=== PATIENT | female | born 1950 | race Caucasian/White ===

== ENCOUNTER → 2020-12-16 17:10 | Outpatient (CLI) | payer MEDICARE, SELFPAY | PROVIDERS: PCP Family Medicine; Visit Provider Physician Assistant | DX: N23 Unspecified renal colic (principal) | CPT/HCPCS: 87077; 87086; 87186 ==

== ENCOUNTER → 2021-07-24 11:37 | Outpatient (CLI) | payer MEDICARE, SELFPAY | PROVIDERS: PCP Family Medicine; Visit Provider Family Medicine | DX: R30.0 Dysuria (principal) | CPT/HCPCS: 87077; 87086; 87186 ==

== ENCOUNTER → 2022-01-06 09:59 | Outpatient (CLI) | payer MEDICARE, SELFPAY | PROVIDERS: PCP Family Medicine; Visit Provider Physician Assistant | DX: R30.0 Dysuria (principal); R39.15 Urgency of urination; Z91.89 Other specified personal risk factors, not elsewhere classified | CPT/HCPCS: 87077; 87086; 87186 ==

== ENCOUNTER → 2022-01-22 10:43 | Outpatient (CLI) | payer MEDICARE, SELFPAY ==
[2022-01-22 20:09] LABS: Appearance Urine UA CLEAR; Bilirubin Urine UA NEGATIVE (NEGATIVE); Color Urine UA YELLOW; Glucose Urine UA NEGATIVE (Negative); Ketones Urine UA NEGATIVE (NEGATIVE); Leukocyte Esterase Urine UA NEGATIVE (NEGATIVE); Nitrite Urine UA NEGATIVE (Negative); Occult Blood Urine UA TRACE-INTACT (Negative); Protein Urine UA NEGATIVE (Negative); Specific Gravity Urine UA 1.015 (1.000-1.035); Urobilinogen Urine UA 0.2 E.U./dL (0.2)
[2022-01-22 20:16] LABS: Bacteria Urine Occasional (0-1); Culture Indicated Urine Cult Not Indicated; Other Crystals Urine 1+ Amorphous; RBC Urine 0-1/HPF (0-5/HPF); Squamous Epithelial Cell Urine 0-1 /HPF (0-5/HPF); WBC Urine 0-1/HPF (0-5/HPF)
== END ==
PROVIDERS: PCP Family Medicine; Visit Provider Physician Assistant
DX: N30.00 Acute cystitis without hematuria (principal)
CPT/HCPCS: 81001

== ENCOUNTER → 2022-09-30 13:34 | Outpatient (CLI) | payer MEDICARE, SELFPAY ==
[2022-09-30 19:52] LABS: Add Manual Diff / Slide Review NO; Basophils Absolute Auto 0 /uL (0-100); Basophils Percent Auto 0.5 % (0-2); Eosinophils Absolute Auto 300 /uL (0-450); Eosinophils Percent Auto 3.3 % (2-4); Hematocrit 39.2 % (36-46); Hemoglobin 13.3 g/dL (12.0-16.0); Lymphocytes Absolute Auto 1000 /uL (1100-4500); Lymphocytes Percent Auto 10.2 % (25-40); Mean Corpuscular HGB Conc 33.8 % (30-36); Mean Corpuscular Volume 91.7 fL (80-100); Monocytes Absolute Auto 1400 /uL (0-900); Monocytes Percent Auto 14.8 % (3-14); Neutrophils Absolute Auto 6700 /uL (1500-7000); Neutrophils Percent Auto 71.2 % (50-75); Platelet Count 268 X10^3/uL (150-400); Red Blood Cell Count 4.27 X10^6/uL (4.0-5.2); White Blood Cell Count 9.4 X10^3/uL (4.5-11.0)
[2022-09-30 20:00] LABS: Alanine Aminotransferase 14 IU/L (<35); Albumin 3.8 g/dL (3.5-5.0); Albumin Globulin Ratio 1.3 (1.0-2.8); Alkaline Phosphatase 78 U/L (38-126); Aspartate Aminotransferase 19 IU/L (14-36); BUN Creatinine Ratio 19.4 (6-22); Bilirubin Total 0.6 mg/dL (0.2-1.3); Blood Urea Nitrogen 13 mg/dL (7-17); Calcium 8.7 mg/dL (8.4-10.2); Carbon Dioxide 23 mmol/L (22-32); Chloride 100 mmol/L (98-107); Estimated Glomerular Filt Rate > 60 mL/min (>60); Glucose 114 mg/dL (80-110); HEMOLYSIS < 15 (0-50); Potassium 4.3 mmol/L (3.4-5.1); Sodium 132 mmol/L (137-145); Total Protein 6.8 g/dL (6.3-8.2)
[2022-09-30 20:10] LABS: NT-proBNP (BNP-Adult 18+) 410 pg/mL (<125)
[2022-09-30 20:30] LABS: D Dimer 934 ng/ml (<500)
== END ==
PROVIDERS: PCP Physician Assistant; Visit Provider Physician Assistant
DX: R05.9 Cough, unspecified (principal); R06.02 Shortness of breath
CPT/HCPCS: 80053; 83880; 85025; 85379

== ENCOUNTER 2022-10-01 10:52 | Emergency (ER) | payer MEDICARE, OTHER, SELFPAY ==
[2022-10-01] VITALS (12 sets, daily range): BP systolic 160–190; BP diastolic 75–101; PULSE 78–93; RESP 20–40; TEMP 37; O2SAT 95–99; BMI 19.9
--- NOTE | 2022-10-01 11:20 | DI.CT.S_ITS ---
PROCEDURE: CT ANGIO CHEST PE PROTOCOL INDICATIONS: soa TECHNIQUE: After the administration of intravenous contrast, 2 mm thick sections acquired from the pulmonary apices to the posterior costophrenic angles. 3-dimensional maximum intensity projection (MIP) coronal and sagittal reformats were then acquired through the thorax. For radiation dose reduction, the following was used: automated exposure control, adjustment of mA and/or kV according to patient size. COMPARISON: None. FINDINGS: Image quality: Excellent. Pulmonary arteries: Pulmonary arteries are normal in size, and demonstrate no intraluminal filling defects to suggest central pulmonary embolism. Lungs and pleura: Prior right pneumonectomy. Bronchiectasis, mucous impaction and tree-in-bud nodules in the left lower lobe. Mild mosaic attenuation. Mediastinum: Heart size is normal, without pericardial effusion. No mediastinal or hilar adenopathy. Thoracic aorta is normal in caliber and enhancement. Esophagus is normal in caliber, without hiatal hernia. Bones and chest wall: No suspicious bony lesions. Ribs and thoracic spine appear intact throughout. Thyroid gland is hypoattenuating. No axillary or supraclavicular adenopathy. Abdomen: Visualized upper abdominal solid organs appear normal in the early arterial phase of enhancement. IMPRESSION: No pulmonary embolus. Left lower lobe bronchiectasis with mucous impaction and tree-in-bud nodules. Findings are suggestive of a chronic process such as aspiration or chronic infectious bronchitis/bronchiolitis. Mild mosaic attenuation of the lungs, suggestive of air trapping in the setting of small airways disease. Prior right pneumonectomy. Dictated by: Tyler Oliveros M.D. on 10/01/2022 at 12:16 Approved by: Tyler Oliveros M.D. on 10/01/2022 at 12:19
[2022-10-01] MEDS: SODIUM CHLORIDE 0.9% 500 ML 1000 ML IV (12:14)
--- NOTE | 2022-10-01 12:23 | ED.SOB ---
HPI - SOB/Dyspnea General Chief Complaint: Shortness of Breath/Dyspnea Stated Complaint: sent by [facility]/ SOB/has 1 lung/poss blood clots Time Seen by Provider: 10/01/22 11:20 Source: patient Mode of arrival: Ambulatory Limitations: no limitations History of Present Illness HPI Narrative: Patient brought in by from home for complaints of shortness of breath. Patient had appointment yesterday with primary care and D-dimer was elevated. Sent here for CT imaging. Patient just returned home from [place] this past Wednesday. They were driving. No prior history of pulmonary embolism. 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 Patient is not on supplemental oxygen at home. She does do occasional inhalers. Please see note below by primary care from yesterday. She sees a compensation administrator in [place]. Her time is divided between [place] and living here. She is back here for the summer. Denies any chest pain. She did have echocardiogram in [place] which was normal. Has had some night sweats. No weight gain. No peripheral edema. 72 yo, nonsmoker, new to me reports SOB with coughing that started around 09/02/22. She does have a compensation administrator in [place],? saw him @09/02/22, and he put her on 5 day prednisone @ 40mg (last dose 09/18/22), added another inhaler (she can't remember which) and sent her for an echocardiogram.? She was not prescribed antibiotics. Echo was normal. In the beginning she had congested cough which has now become a dry cough. 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 She did just travel here for four days in a car but her symptoms were present longer.? She had negative covid test earlier today. Denies fever, runny nose, throat pain. Denies history with clot. She has oxygen at home, SPO2 usually runs @95% and today has been at 91-92%. Related Data Home Medications Medication Instructions Recorded Confirmed fluticasone furoate 100 1 inh inhalation DAILY 12/16/20 09/30/22 mcg-vilanterol 25 mcg/dose inhalation powder (Breo Ellipta) levothyroxine 100 mcg capsule 100 mcg PO DAILY 09/30/22 09/30/22 Previous Rx's Medication Instructions Recorded albuterol sulfate 2.5 mg/3 mL 2.5 mg (3 mL) inhalation Q4-6H PRN 10/01/22 (0.083 %) solution for nebulization shortness of breath or wheezing #90 mL Allergies Allergy/AdvReac Type Severity Reaction Status Date / Time ampicillin [AMPICILLIN] Allergy Mild Rash Verified 10/01/22 10:54 clindamycin [CLINDAMYCIN] Allergy Mild Rash Verified 10/01/22 10:54 Sulfa (Sulfonamide AdvReac Mild Nausea Verified 10/01/22 11:23 Antibiotics) [SULFA (SULFONAMIDE ANTIBIOTICS)] Review of Systems Review of Systems Narrative: GENERAL: negative chills, fatigue, malaise, fever, sweats. HEENT: negative sinus pain, ear pain, sore throat RESPIRATORY: Positive dyspnea, positive cough CARDIOVASCULAR: negative chest pain, palpitations GASTROINTESTINAL: negative nausea, vomiting, abdominal pain : negative dysuria, frequency, hematuria MUSCULOSKELETAL: negative muscle or bony pain SKIN: negative rash, skin lesions NEUROLOGIC: negative weakness, numbness ROS Unobtainable: All systems reviewed & are unremarkable except as noted in HPI and below Patient History Social History Smoking Status: Never smoker Smoking Status: Never smoker alcohol intake frequency: holidays/special occasions only Substance Use Type: does not use Exam Narrative Exam Narrative: GENERAL: in no distress, not toxic not dyspneic HEAD: Normocephalic. EYES: Pupils equal round ENT: Mucous membranes moist. NECK: Trachea midline. CARDIOVASCULAR: Regular rate and rhythm without murmurs RESPIRATORY: Absent lung sounds on the right. Clear lung sounds on the left. Patient is speaking full sentences. No wheezing rhonchi or rales. GASTROINTESTINAL: Abdomen soft, non-tender EXTREMITIES: No gross deformities. No ankle edema BACK: No flank tenderness. NEURO: AOx4. SKIN: Warm and dry PSYCH: Not anxious, is cooperative Initial Vital Signs Initial Vital Signs: Vital Signs Temperature 98.6 F 10/01/22 10:54 Pulse Rate 93 H 10/01/22 10:54 Respiratory Rate 24 10/01/22 10:54 Blood Pressure 176/101 H 10/01/22 10:54 Pulse Oximetry 96 10/01/22 10:54 Oxygen Delivery Method Room Air 10/01/22 10:54 Course Orders Ordered: Discontinued Medications Albuterol (Albuterol 2.5 Mg/3 Ml Neb (Adult)) 2.5 mg INH NOW ONE Stop: 10/01/22 14:01 Last Admin: 10/01/22 14:04 Dose: 2.5 mg Documented By: PEPE Sodium Chloride (Normal Saline 0.9%) 500 mls @ 1,000 mls/hr IV BOLUS ONE Stop: 10/01/22 11:49 Last Infusion: 10/01/22 13:19 Dose: 0 mls/hr Documented By: Admin: 10/01/22 12:14 Dose: 1,000 mls/hr Documented By: RO Vital Signs Vital signs: Vital Signs - 8 hr 10/01/22 10:54 10/01/22 11:36 10/01/22 11:37 Temperature 98.6 F Pulse Rate 93 H 81 Respiratory Rate 24 28 H Blood Pressure 176/101 H 170/75 H Pulse Oximetry 96 Oxygen Delivery Method Room Air Oxygen Flow Rate Fraction of Inspired Oxygen 10/01/22 11:37 10/01/22 14:04 Temperature Pulse Rate 80 87 Respiratory Rate 35 H 24 Blood Pressure Pulse Oximetry 95 Oxygen Delivery Method Room Air Oxygen Flow Rate 0 Fraction of Inspired Oxygen 21 MDM - SOB/Dyspnea Lab Data 10/01/22 12:22 10/01/22 12:22 Labs: Lab Results 10/01/22 10/01/22 10/01/22 Range/Units 12:22 12:22 12:30 WBC 10.0 (4.5-11.0) X10^3/uL RBC 4.27 (4.0-5.2) X10^6/uL Hgb 13.0 (12.0-16.0) g/dL Hct 39.4 (36-46) % MCV 92.1 (80-100) fL MCH 30.5 (26-34) PG MCHC 33.1 (30-36) % RDW 13.6 (11.6-14.8) % Plt Count 291 (150-400) X10^3/uL Neut % (Auto) 73.4 (50-75) % Lymph % (Auto) 12.0 L (25-40) % Dougherty % (Auto) 13.7 (3-14) % Eos % (Auto) 0.8 L (2-4) % Baso % (Auto) 0.1 (0-2) % Neut # (Auto) 7300 H (3530-3874) /uL Lymph # (Auto) 1200 (0415-7888) /uL Dougherty # (Auto) 1400 H (0-900) /uL Eos # (Auto) 100 (0-450) /uL Baso # (Auto) 0 (0-100) /uL Sodium 132 L (137-145) mmol/L Potassium 3.8 (3.4-5.1) mmol/L Chloride 100 (98-107) mmol/L Carbon Dioxide 26 (22-32) mmol/L BUN 13 (7-17) mg/dL Creatinine 0.53 (0.52-1.04) mg/dL Estimated GFR > 60 (>60) mL/min BUN/Creatinine Ratio 24.5 H (6-22) Glucose 100 (80-110) mg/dL Calcium 8.8 (8.4-10.2) mg/dL Total Bilirubin 0.5 (0.2-1.3) mg/dL AST 20 (14-36) IU/L ALT 15 (<35) IU/L Alkaline Phosphatase 75 (38-126) U/L Total Creatine Kinase 63 (30-135) U/L CK-MB (CK-2) TNP CK-MB (CK-2) Rel Index TNP Troponin I < 0.012 (0.01-0.034) ng/mL Total Protein 7.5 (6.3-8.2) g/dL Albumin 4.1 (3.5-5.0) g/dL Globulin 3.4 (1.7-4.1) g/dL Albumin/Globulin Ratio 1.2 (1.0-2.8) Chlamy pneumoniae PCR Not detected (Not Detect) Adenovirus (PCR) Not detected (Not Detect) B. pertussis DNA (PCR) Not detected (Not Detecte) B.parapertussis DNA PCR Not detected (Not Detecte) Coronavirus OC43 (PCR) Not detected (Not Detect) Coronavirus HKU1 (PCR) Not detected (Not Detect) Coronavirus 229E (PCR) Not detected (Not Detect) SARS-CoV-2 (PCR) Not detected (Not Detecte) Coronavirus NL63 (PCR) Not detected (Not Detect) Human Metapneumovir PCR Not detected (Not Detect) Influenza Type A (PCR) Not detected (Not Detect) Influenza Type B (PCR) Not detected (Not Detect) M. pneumoniae (PCR) Not detected (Not Detect) Parainfluenza 1 (PCR) Not detected (Not Detect) Parainfluenza 2 (PCR) Not detected (Not Detect) Parainfluenza 3 (PCR) Not detected (Not Detect) Parainfluenza 4 (PCR) Not detected (Not Detect) RSV (PCR) Not detected (Not Detect) Entero/Rhino (PCR) Not detected (Not Detect) Imaging Data CT scan - chest: Radiologist's Impression: IMPRESSION:? No pulmonary embolus. ? Left lower lobe bronchiectasis with mucous impaction and tree-in-bud nodules.? Findings are suggestive of a chronic process such as aspiration or chronic infectious bronchitis/bronchiolitis. ? Mild mosaic attenuation of the lungs, suggestive of air trapping in the setting of small airways disease. ? Prior right pneumonectomy. MDM Narrative Medical decision making narrative: Patient brought in by from home for complaints of shortness of breath. Patient had appointment yesterday with primary care and D-dimer was elevated. Sent here for CT imaging. Patient just returned home from [place] this past Wednesday. They were driving. No prior history of pulmonary embolism. 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 Patient is not on supplemental oxygen at home. She does do occasional inhalers. Please see note below by primary care from yesterday. She sees a compensation administrator in [place]. Her time is divided between [place] and living here. She is back here for the summer. Denies any chest pain. She did have echocardiogram in [place] which was normal. Has had some night sweats. No weight gain. No peripheral edema. After history and exam CBC CMP troponin EKG CT chest viral swab [facility] CC: Dyspnea Complicating co-morbidities: Mycobacterium/bronchial centric granulomatosis Data collected from: Patient and . Medical records reviewed: Office visit yesterday September 30, 2022 with primary care Differential considered: Includes but not limited to pneumonia pulmonary embolism fungal infection viral infection Exam documented above, pertinent findings include: Absent right lung sounds Lab Test results independently reviewed as above. Pertinent findings: WBC 10.0 hemoglobin 13 platelets 291 sodium 132 BUN 13 creatinine 0.53 GFR greater than 60 Independently reviewed EKG as above trigeminy pattern. Sinus rhythm. Rate 82. No ST elevation or depression Imaging studies independently reviewed: CT chest. No pulmonary embolus. Left lower lobe bronchiectasis with mucous impaction and tree-in-bud nodules. Findings are suggestive of chronic process such as aspiration or chronic infectious bronchitis bronchiolitis. Mild mosaic attenuation of the lungs suggestive of air trapping in the setting of small airway disease Consultations: 1:30 p.m.. Spoke with [facility] cardiology Dr Kamara, trigeminy likely due to chronic lung disease. No intervention indicated from cardiac standpoint. 2:30 p.m.. Spoke with [facility], pulmonary service, Dr. Shoemaker, he is not on-call for us however he was kind enough to give phone number for patient to follow up, may need referral. Patient would follow up at the [place] office. [facility] Treatments: Albuterol nebulizer. Re-evaluations: 2:45 p.m.. Patient feeling much better after albuterol nebulized treatment. She feels like she can take a deep breath and not as short of breath. I reviewed results with patient and . Also my discussion with Pulmonary as [facility], they are not on-call for us but they were kind to give phone number to call the office and may need referral from primary care to see them. Phone number is [phone]. Return precautions reviewed with them. I will refill her albuterol. She had not been using it. Discussion: Appropriate for discharge home. Symptoms ongoing for 4 weeks. Otherwise laboratory studies imaging are reassuring. Patient felt much better after albuterol treatment. They are aware that CT imaging does not rule out infectious process but at this time symptoms ongoing for weeks. Approved for outpatient workup/bronchoscopy. Return precautions reviewed. Patient feeling much better. They desire discharge home Diagnosis: Dyspnea Discharge Plan Departure Patient Disposition: Home Clinical Impression: SOB (shortness of breath) Instructions: DI for Shortness of Breath Activity Restrictions/Additional Instructions: Please call provided pulmonary services today or tomorrow to make appointment for a new compensation administrator. you may need referral from your family doctor. They do have offices at [place] as well as [place]. Prescription for albuterol nebulizer cartridges has been sent to your pharmacy to [facility]. May continue 1 treatment every 4 hours as needed for shortness of breath. At this time no antibiotics are indicated.. Return if worse if any questions or concerns or any trouble breathing Prescriptions: New albuterol sulfate 2.5 mg /3 mL (0.083 %) solution for nebulization 2.5 mg inhalation Q4-6H PRN (Reason: shortness of breath or wheezing) Qty: 90 0RF No Action Breo Ellipta 100-25 mcg/dose blister with device 1 inh inhalation DAILY levothyroxine 100 mcg capsule 100 mcg PO DAILY Referrals: Viki Acosta PA-C [Primary Care Provider] - Stand Alone Forms: Patient Portal/API
[2022-10-01 12:45] LABS: Add Manual Diff / Slide Review NO; Basophils Absolute Auto 0 /uL (0-100); Basophils Percent Auto 0.1 % (0-2); Eosinophils Absolute Auto 100 /uL (0-450); Eosinophils Percent Auto 0.8 % (2-4); Hematocrit 39.4 % (36-46); Lymphocytes Absolute Auto 1200 /uL (1100-4500); Mean Corpuscular HGB Conc 33.1 % (30-36); Mean Corpuscular Hemoglobin 30.5 PG (26-34); Mean Corpuscular Volume 92.1 fL (80-100); Monocytes Absolute Auto 1400 /uL (0-900); Monocytes Percent Auto 13.7 % (3-14); Neutrophils Absolute Auto 7300 /uL (1500-7000); Neutrophils Percent Auto 73.4 % (50-75); Platelet Count 291 X10^3/uL (150-400); Red Blood Cell Count 4.27 X10^6/uL (4.0-5.2); Red Cell Distribution Width 13.6 % (11.6-14.8)
[2022-10-01 12:50] LABS: Alanine Aminotransferase 15 IU/L (<35); Albumin 4.1 g/dL (3.5-5.0); Albumin Globulin Ratio 1.2 (1.0-2.8); Alkaline Phosphatase 75 U/L (38-126); Aspartate Aminotransferase 20 IU/L (14-36); BUN Creatinine Ratio 24.5 (6-22); Bilirubin Total 0.5 mg/dL (0.2-1.3); Blood Urea Nitrogen 13 mg/dL (7-17); Calcium 8.8 mg/dL (8.4-10.2); Carbon Dioxide 26 mmol/L (22-32); Chloride 100 mmol/L (98-107); Creatine Kinase 63 U/L (30-135); Estimated Glomerular Filt Rate > 60 mL/min (>60); Globulin 3.4 g/dL (1.7-4.1); Glucose 100 mg/dL (80-110); HEMOLYSIS < 15 (0-50); Potassium 3.8 mmol/L (3.4-5.1); Sodium 132 mmol/L (137-145); Total Protein 7.5 g/dL (6.3-8.2)
[2022-10-01 13:02] LABS: Troponin I < 0.012 ng/mL (0.01-0.034)
[2022-10-01] MEDS: ALBUTEROL 2.5 MG/3 ML NEB (ADULT) INH (14:04)
[2022-10-01 17:23] LABS: Adenovirus Not Detected (Not Detect); B. parapertussis Not Detected (Not Detecte); Bordetella pertussis Not Detected (Not Detecte); Chlamydophila pneumoniae Not Detected (Not Detect); Coronavirus 229E Not Detected (Not Detect); Coronavirus HKU1 Not Detected (Not Detect); Coronavirus NL 63 Not Detected (Not Detect); Coronavirus OC43 Not Detected (Not Detect); Human Metapneumovirus Not Detected (Not Detect); Human Rhinovirus/Enterovirus Not Detected (Not Detect); Influenza A Not Detected (Not Detect); Influenza B Not Detected (Not Detect); Mycoplasma pneumoniae Not Detected (Not Detect); Parainfluenza Virus 1 Not Detected (Not Detect); Parainfluenza Virus 2 Not Detected (Not Detect); Parainfluenza Virus 3 Not Detected (Not Detect); Parainfluenza Virus 4 Not Detected (Not Detect); Respiratory Syncytial Virus Not Detected (Not Detect); SARS- CoV-2 Not Detected (Not Detecte)
== END 2022-10-01 15:03 | disposition home or self-care (01) ==
PROVIDERS: Emergency Provider Emergency Medicine; PCP Physician Assistant
DX: R06.02 Shortness of breath (principal); J98.4 Other disorders of lung; Q33.3 Agenesis of lung
CPT/HCPCS: 36415; 71275; 80053; 82550; 84484; 85025; 87633; 93005; 94640; 99284; J7613; Q9967

== ENCOUNTER → 2023-12-02 13:34 | Outpatient (CLI) | payer MEDICARE, OTHER, SELFPAY ==
[2023-12-03 01:16] LABS: Blood Urea Nitrogen 20 mg/dL (7-17); Calcium 9.6 mg/dL (8.4-10.2); Carbon Dioxide 30 mmol/L (22-32); Chloride 100 mmol/L (98-107); Estimated Glomerular Filt Rate > 60 mL/min (>60); Glucose 106 mg/dL (80-110); HEMOLYSIS < 15 (0-50); Magnesium 2.4 mg/dL (1.6-2.3); Potassium 4.4 mmol/L (3.4-5.1); Sodium 135 mmol/L (137-145)
== END ==
PROVIDERS: PCP Physician Assistant Medical; Visit Provider Family Medicine
DX: Z51.81 Encounter for therapeutic drug level monitoring (principal); M54.6 Pain in thoracic spine; M80.00XA Age-related osteoporosis with current pathological fracture, unspecified site, initial encounter for fracture
CPT/HCPCS: 80048; 82310; 83735; 83970

== ENCOUNTER → 2024-11-23 11:10 | Outpatient (CLI) | payer MEDICARE, OTHER, SELFPAY ==
[2024-11-23 20:57] LABS: Add Manual Diff / Slide Review NO; Hematocrit 39.5 % (36-46); Hemoglobin 12.9 g/dL (12.0-16.0); Lymphocytes Absolute Auto 1200 /uL (1100-4500); Mean Corpuscular HGB Conc 32.7 % (30-36); Mean Corpuscular Hemoglobin 30.6 PG (26-34); Mean Corpuscular Volume 93.5 fL (80-100); Platelet Count 358 X10^3/uL (150-400)
[2024-11-23 21:04] LABS: Alanine Aminotransferase 14 IU/L (<35); Albumin 4.2 g/dL (3.5-5.0); Albumin Globulin Ratio 1.4 (1.0-2.8); Alkaline Phosphatase 70 U/L (38-126); Blood Urea Nitrogen 13 mg/dL (7-17); Calcium 9.8 mg/dL (8.4-10.2); Carbon Dioxide 29 mmol/L (22-32); Chloride 99 mmol/L (98-107); Estimated Glomerular Filt Rate > 60 mL/min (>60); Globulin 2.9 g/dL (1.7-4.1); Glucose 95 mg/dL (70-99); HEMOLYSIS < 15 (0-50); Potassium 4.4 mmol/L (3.4-5.1); Sodium 136 mmol/L (137-145); Total Protein 7.1 g/dL (6.3-8.2)
== END ==
PROVIDERS: PCP Physician Assistant Medical
DX: B38.9 Coccidioidomycosis, unspecified (principal)
CPT/HCPCS: 80053; 80076; 85025